=== PATIENT | male | born 2000 | race Hispanic/Latino ===

== ENCOUNTER 2023-05-17 16:03 | Emergency (ER) | payer OTHER, SELFPAY ==
[2023-05-17 16:04] VITALS: BP 113/68; PULSE 80; RESP 18; TEMP 36.3; O2SAT 98; BMI 23.3
--- NOTE | 2023-05-17 16:15 | RAD_ITS ---
EXAM: XR RIGHT FOREARM, 2 VIEWS CLINICAL INDICATION: injury TECHNIQUE: Frontal and lateral views of the right forearm. COMPARISON: No relevant prior studies available. FINDINGS: BONES/JOINTS: Nondisplaced fracture of the junction of the middle and distal third of the ulnar diaphysis. No dislocation. SOFT TISSUES: Unremarkable. RAD/Forearm 2 Views IMPRESSION: Nondisplaced fracture of the junction of the middle and distal third of the ulnar diaphysis. Electronically Signed: Justin Randhawa MD at 17:00 EDT ,
--- NOTE | 2023-05-17 16:15 | EX.ED.UPPERE ---
HPI History of Present Illness Chief Complaint: Upper Extremity Injury Informant: patient Occured/Mechanism Mechanism/Context: Yes direct blow Onset/Context/Timing Onset: Today Narrative Narrative: Patient presents secondary to right arm injury. He was reportedly playing soccer when he got kicked by another player who was trying to kick the ball. He complains of pain to his right forearm. No paresthesias. He is right-hand dominant. He did take 800 mg of ibuprofen prior to arrival. PFSH PFSH Medical History no medical history no medical history Home Medications hydrocodone-acetaminophen 5-325mg 5mg-325mg 1 tab PO Q6H PRN PRN Pain 3 days #10 TABLETS 05/17/23 [Rx Last Taken Unknown] Allergy/AdvReac Type Severity Reaction Status Date / Time No Known Allergies Allergy Verified 05/17/23 16:04 Surgical History no surgical history no surgical history Social History Smoking Status: Never smoker ROS ROS ED Constitutional Constitutional ED: Denies chills or fever(s) ENT ENT ED: Denies rhinorrhea Cardiovascular Cardiovascular: Denies chest pain Respiratory/Chest Respiratory/Chest: Denies dyspnea Gastrointestinal Gastrointestinal: Denies abdominal pain, nausea or vomiting Musculoskeletal Musculoskeletal: Reports extremity pain; Denies back pain Integumentary Denies Abrasions or rash Neurologic Neurologic: Denies paresthesias or weakness Psychiatric Psychiatric: Denies anxiety or depression Allergic/Immunologic Allergic/Immunologic ED: Denies lip swelling or urticaria EXAM Physical Exam Const Vital Signs: 05/17/23 16:04 Temperature 97.3 F L Temperature Source Temporal Pulse Rate 80 Respiratory Rate 18 Blood Pressure 113/68 Blood Pressure Mean 83 Pulse Ox 98 Positive well nourished and well developed General Appearance ED: well developed HEENT Reports normocephalic and head/scalp atraumatic Eyes PERRL and EOMs intact bilaterally Neck supple Chest Wall inspection of chest normal and palpation of chest normal Resp normal respiratory effort and clear to auscultation bilaterally Cardio regular rate and regular rhythm GI normal to inspection, nondistended, normoactive bowel sounds Palpation: soft Back/Spine no CVA tenderness Extremity Extremity Narrative: Mild tender palpation over the distal half of the right forearm. He gets pain to this region with pronation and supination. He has no pain at the elbow or shoulder. He has a strong hand grasp with normal cap refill and sensation. Neuro oriented x3 and no sensory deficits noted Sensorium / Orientation: alert Motor Exam: strength 5/5 throughout Psych mental status grossly normal Skin no rashes or lesions noted MDM MDM MDM Narrative Medical decision making narrative: Patient did take ibuprofen prior to arrival. Right forearm x-rays were obtained to evaluate for fracture. Treatment and Re-Evaluation Narrative: Right forearm x-ray per my interpretation reveals a nondisplaced mid ulnar fracture. X-rays are reviewed with patient and family. Patient is placed in a long-arm ulnar gutter splint with 5 inch Ortho-Glass. Following splint application he has good cap refill distally and can wiggle fingers. He will be given a sling. He will be given prescription for [place] as well as follow-up with orthopedics. Discharge Plan Triage Chief Complaint: Upper Extremity Injury ED Provider: Laina Mendoza Dx/Rx/DC Orders Clinical Impression: Forearm fracture Instructions: ED Fracture, Upper Extremity Prescriptions: New hydrocodone-acetaminophen 5-325 mg tablet 1 tab PO Q6H PRN PRN (Reason: Pain) 3 Days Qty: 10 0RF Stand Alone Forms: ED Work / School Excuse Primary Care Provider: Care Physician,No Primary Referrals: Marques Love DO [Med Staff - Active Staff] - 5-7 Days Care Physician,No Primary [Primary Care Provider] - Disposition Disposition: Home, Self Care
[2023-05-17] MEDS: HYDROcodone Bitartrate/Apap 5/325 Tablet PO (16:55)
--- NOTE | 2023-05-18 12:50 | ED.RN ---
pt s/o called regarding unable to get rx filled at [facility] and needs rx called int [facility] in [place]. dr coyle assisted with this. attempted to call pt to confirm rx is at [facility], no answer and unable to leave message
== END 2023-05-17 17:00 | disposition home or self-care (01) ==
PROVIDERS: Emergency Provider Emergency Medicine; Visit Provider Emergency Medicine
DX: S52.201A Unspecified fracture of shaft of right ulna, initial encounter for closed fracture (principal); Y93.66 Activity, soccer
CPT/HCPCS: 73090; 99283